=== PATIENT | female | born 1960 | race Caucasian/White ===

== ENCOUNTER → 2017-04-20 | Outpatient (CLI) | payer BC ==
--- NOTE | 2017-04-20 17:46 | CT ---
EXAMINATION TYPE: CT abdomen pelvis w con DATE OF EXAM: 04/20/2017 COMPARISON: NONE INDICATION: Diarrhea and left side abdominal pain x2 months. DLP: 943 mGycm, Automated exposure control for dose reduction was used. CONTRAST: 100 mL of Omnipaque 300. Study performed with Oral Contrast TECHNIQUE: Axial images were obtained from above the diaphragm to the pubic rami in the axial plane a t 5 mm thick sections. Reconstructed images are reviewed on the computer in the coronal plane. FINDINGS: Limited CT sections are obtained the lung bases. The lung bases are clear. CT ABDOMEN: Liver: There is a 1.1 cm cyst in the superior right lobe liver. Spleen: Normal Pancreas: Normal Adrenal glands: The adrenal glands are normal. Gallbladder: Normal Kidneys: No masses are evident. No hydronephrosis is present. No cysts are present. Delayed images were obtained through the kidneys, which remain unremarkable. Aorta: Vascular calcification is within the aorta. Inferior vena cava: Normal. CT PELVIS: There is thickening through the ascending colon. Correlate for colitis. Small bowel loops appear unremarkable. Distal colon is nondistended and lacks oral contrast. There ar e some proximal small bowel loops lacking oral contrast limiting their evaluation. Appendix: The appendix is not identified. Inflammatory changes to suggest acute appendicitis however not identified. Urinary bladder: Normal. Genitourinary structures: Uterus appears normal. Adnexal regions are clear. Osseous structures: No suspicious lytic or sclerotic lesions. IMPRESSIONS: 1. Clinical correlation recommended for colitis of the ascending colon region. 2. Nonvisualization of the appendix.
== END ==
LOC: RADCTMAIN 15:09
PROVIDERS: ATTEND Internal Medicine
DX: K57.32 Diverticulitis of large intestine without perforation or abscess without bleeding (principal)
CPT/HCPCS: 74177; Q9967

== ENCOUNTER → 2018-02-05 | Outpatient (CLI) | payer BC ==
[2018-02-05 12:55] VITALS: BP 162/72; PULSE 63; RESP 18; TEMP 96.4; BMI 23.1
--- NOTE | 2018-02-05 13:51 | P.HPOB ---
History of Present Illness H&P Date: 02/05/18 Chief Complaint: Patient is here for her routine gynecologic exam. This is a 57-year-old G2 PII within LMP of 2014. The patient has a history of a rectocele. She thinks that it is bulging more than in the past and comes to the vaginal opening or just outside of the opening. She has also been experiencing constipation. She has been having hot flashes and was recently started on Prozac for this. She is thinking about weaning off of the Prozac. Yesterday, she noticed a small pink spot of blood from the vagina. She denies any vaginal bleeding other than this since her LMP in 2014. Review of Systems She has lost about 12 pounds over the last 3 to 4 years. She attributes this to IBS. She denies respiratory, cardiac, or G.I. problems. Past Medical History Additional Past Medical History / Comment(s): hx hemorrhoids- some bleeding noted lately after B.M ? IBS. Past KENNEL ATTENDANT history: she has no history of STDs. She does have a Known rectocele. History of Any Multi-Drug Resistant Organisms: None Reported Additional Past Surgical History / Comment(s): rt breast bx x 2 Past Anesthesia/Blood Transfusion Reactions: No Reported Reaction Past Psychological History: No Psychological Hx Reported Smoking Status: Former smoker Past Alcohol Use History: Occasional (2 per week) Past Drug Use History: None Reported - Past Family History Father Family Medical History: Coronary Artery Disease (CAD) Additional Family Medical History / Comment(s): alzheimers. at age 61 Mother Family Medical History: Cancer Additional Family Medical History / Comment(s): Breast Ca. at age 41 Medications and Allergies Home Medications Medication Instructions Recorded Confirmed Type FLUoxetine HCL [PROzac] 20 mg PO DAILY 02/05/18 02/05/18 History Linaclotide [Linzess] 72 mcg PO DAILY 02/05/18 02/05/18 History Allergies Allergy/AdvReac Type Severity Reaction Status Date / Time No Known Allergies Allergy Verified 02/05/18 12:57 Exam - Vital Signs Vital signs: Vital Signs Temp Pulse Resp BP 02/05/18 12:49 96.4 F L 63 18 162/72 Intake and Output 02/04/18 02/05/18 02/05/18 22:59 06:59 14:59 Other: Weight 67.132 kg Repeat blood pressure 150/80, height 5'7", BMI 23.2. This is a well-developed well-nourished white female who is alert and oriented times 3 in no acute distress. HEENT: Within normal limits. NECK: Supple without mass or thyromegaly. CHEST AND LUNGS: Clear to auscultation. HEART: Regular rate and rhythm. BREASTS: Are without mass or discharge. AXILLARY EXAM: Negative for adenopathy. BACK: Negative for CVA tenderness. ABDOMEN: Soft, nontender, without palpable masses. PELVIC EXAM: Normal external genitalia with mild atrophy. Cervix appears normal with mild atrophy and no evidence of blood. There is a grade 2 to 3 rectocele that protrudes to the introitus with Valsalva. The vaginal mucosa shows no signs of excoriation or thickening. There is no unusual discharge. There is no evidence of cystocele or uterine prolapse. The uterus is midposition, nongravid size and nontender. There are no palpable adnexal masses or tenderness. RECTAL EXAM: rectovaginal exam is negative for mass or tenderness and is negative for occult blood. EXTREMITIES: Nontender. IMPRESSION: 1. 57 year old with grade 2 to 3 rectocele which has become slightly more symptomatic. This is possibly related to her worsening constipation. 2. Small postmenopausal bleeding yesterday. This may or may not have been uterine. This could be related to the rectocele if the mucosal tissue overlying the rectocele bled. 3. Elevated blood pressure. 4. Family history of breast cancer in her mother. PLAN: 1. Pap smear was performed. 2. Self breast examination was discussed. 3. Screening mammogram is due and an order slip was given the patient for this. She states she has an appointment in the near future for this. 4. Pelvic ultrasound was recommended and in order slip is given the patient for this. This will be done to further evaluate the small amount of postmenopausal bleeding that she experienced. 5. We had long discussion regarding her rectocele. We discussed options including conservative management and surgical correction. The patient states that the rectocele is bothersome to her and would like to proceed with surgical correction. After reviewing her pelvic ultrasound we will make a referral for a rectocele repair. 6. She will return in one year and PRN.
--- NOTE | 2018-02-12 17:02 | P.PN ---
Progress Note - Text Progress Note Date: 02/12/18 The patient's Pap smear from 02/05/2018 was negative. A shift in the vaginal ramirez was noted suggestive of bacterial vaginosis. The patient is not having any vaginal odor but has noticed a slight thin discharge. a/bacterial vaginosis p/metronidazole 500 mg 1 PO b.i.d. times 7 days. She was instructed to avoid alcohol use while taking this medication. An E prescription will be sent to [facility] in [place].
--- NOTE | 2018-02-26 14:06 | P.PN ---
Progress Note - Text Progress Note Date: 02/26/18 The patient's ultrasound from 02/21/2018 was reviewed. This was unremarkable and endometrial thickness was normal. This was discussed with the patient by phone. She had a small amount of vaginal bleeding 3 days ago. She continues to have asymptomatic rectocele. She will be referred for possible surgical correction of the rectocele and to determine if any further testing is necessary for the small postmenopausal bleeding. She will be referred to Dr. Ramirez.
== END | disposition home or self-care (01) ==
LOC: WWCWWP 12:38
PROVIDERS: ATTEND Obstetrics & Gynecology
DX: Z53.9 Procedure and treatment not carried out, unspecified reason (principal)

== ENCOUNTER → 2018-04-15 | Outpatient (CLI) | payer BC ==
[2018-04-15 15:27] LABS: Basophils # (A) 0.1 k/uL (0-0.2); Basophils % (A) 1 %; Eosinophils # (A) 0.2 k/uL (0-0.7); Eosinophils % (A) 3 %; HCT 38.3 % (34.0-46.0); HGB 12.9 gm/dL (11.4-16.0); Lymphocytes # (A) 1.7 k/uL (1.0-4.8); Lymphocytes % (A) 28 %; MCH 31.5 pg (25.0-35.0); MCHC 33.7 g/dL (31.0-37.0); MCV 93.3 fL (80.0-100.0); Mean Platelet Volume 8.1; Monocytes # (A) 0.4 k/uL (0-1.0); Monocytes % (A) 6 %; Neutrophils # (A) 3.6 k/uL (1.3-7.7); Neutrophils % (A) 60 %; Platelet Count 238 k/uL (150-450); RBC 4.11 m/uL (3.80-5.40); RDW 13.2 % (11.5-15.5); WBC 6.1 k/uL (3.8-10.6)
[2018-04-15 15:40] LABS: Potassium 4.6 mmol/L (3.5-5.1)
== END | disposition home or self-care (01) ==
LOC: LABPAT 14:59
PROVIDERS: ATTEND Obstetrics & Gynecology
DX: Z01.812 Encounter for preprocedural laboratory examination (principal); N81.4 Uterovaginal prolapse, unspecified
CPT/HCPCS: 36415; 80051; 82565; 82947; 84520; 85025; 87086

== ENCOUNTER 2018-04-23 07:27 | Observation (INO) | payer BC ==
[2018-04-16 14:33] VITALS: BMI 21.6
--- NOTE | 2018-04-18 09:48 | HP ---
HISTORY AND PHYSICAL Preoperative H and P for April 23. This is a 57-year-old female who presented for evaluation for increasing perineal bulge. Dr. Bar's impression was that of an advanced rectocele. The patient is menopausal, she is not taking hormone replacement therapy. She denies postmenopausal bleeding. She is complaining of increased pressure, slow urinary stream and increasing bulge per the perineal body. She denies any other symptomatology. REVIEW OF SYSTEMS: Review of systems is therefore otherwise negative. PAST MEDICAL HISTORY: Past medial history is significant for irritable bowel syndrome, anemia, and advancing rectocele. PAST SURGICAL HISTORY: Past surgical history is significant for breast biopsies of benign nature x2. CURRENT MEDICATIONS: 1. Fluoxetine 40 mg tablets once daily. 2. Linzess 72 mcg daily. ALLERGIES: None known. FAMILY HISTORY: Family history is significant for Alzheimer disease, breast cancer, diabetes, heart disease. REPRODUCTIVE HISTORY: Significant for 2 vaginal deliveries, 9-pound 13-ounce and 9-pound 12-ounce infants. 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 She has never been a smoker. She drinks 3 cups of coffee daily, and 1 to 2 alcoholic beverages daily. She is . PHYSICAL EXAMINATION: On examination, this is a pleasant female, 5 feet, 7 inches, 141 pounds, BMI 22, blood pressure 116/72. HEENT exam reveals no thyromegaly. Trachea is in the midline. No cervical lymphadenopathy. Breasts are bilaterally symmetric to inspection with no skin dimpling, nipple discharge, axillary adenopathy, or discernible lesions or masses. Chest is clear to auscultation in all brennan anteriorly and posteriorly. Cardiac exam reveals regular rate and rhythm with no murmur, click, or rub. Peripheral circulation reveals no edema, no cyanosis. There are good peripheral pulses. Abdominal exam reveals no organosplenomegaly, active bowel sounds, no herniorrhaphy. On pelvic exam, external genitalia is reasonably well estrogenized with no unusual discharge. Cervix appears multiparous, there is no bleeding. Uterus is small, mobile, grade 2 to 3 uterine prolapse is noted with Valsalva in the lithotomy position. Adnexa are negative bilaterally. There is a grade 3 to 4 rectocele noted, no obvious cystocele. Rectal exam reveals good sphincter tone, FIT negative stool. IMPRESSION: Increasingly symptomatic uterine prolapse and rectocele, patient requesting surgical repair. PLAN: We will proceed with vaginal hysterectomy and rectocele repair for this patient. The risks, benefits, and alternatives have been reviewed. The patient understands the risks of surgery to include bleeding, perforation or damage to bowel, bladder, ureters, or indeed any blood vessels or abdominal or pelvic organs. The risks of anesthesia including aspiration, nerve damage, and even have been discussed. The ACOG pamphlet on this procedure have been given to the patient for her more thorough review. A second opinion is offered and declined. All questions have been answered. We will proceed with surgery for this patient on 04/23/2018. MMODL / IJN: [id number] /
[~2018-04-23 07:27] MED LIST: HYDROmorphone 0.5 MG/0.5 ML SYRINGE IVP PRN; LIDOCAINE 1% 20 ML VIAL (10MG/ML) FOR IV START INTRADERMA PRN; MIDAZOLAM 2 MG/2 ML VIAL IV PRN; NALBUPHINE 10 MG/ML VIAL (10ML MDV) IV PRN; NALOXONE 0.4 MG/ML 1 ML VIAL IV PRN; ceFAZolin IN SWFI 2 GM/20 ML SYRINGE IVP ONE; fentaNYL (PF) 50 MCG/ML 2 ML AMP IV PRN
[2018-04-23] MEDS ORDERED: LACTATED RINGERS 1,000 ML IV ONE ×3 (07:59→11:43)
[2018-04-23] MEDS ORDERED: ONDANSETRON 4 MG/2 ML VIAL IVP ONE (08:14)
[2018-04-23] MEDS ORDERED: DEXAMETHASONE SOD PHOSPHATE 10 MG/ML 1 ML VIAL IV ONE (08:14)
[2018-04-23] MEDS ORDERED: ONDANSETRON 4 MG/2 ML VIAL IVP PRN ×2 (08:15→10:36)
[2018-04-23] MEDS ORDERED: METOCLOPRAMIDE 5 MG/ML 2 ML VIAL IVP PRN ×2 (08:15→10:36)
[2018-04-23] MEDS ORDERED: diphenhydrAMINE 50 MG/ML 1 ML VIAL IVP PRN (08:15)
[2018-04-23] MEDS ORDERED: MORPHINE SULFATE 2 MG/ML SYRINGE IVP PRN (08:15)
[2018-04-23] MEDS ORDERED: GLYCOPYRROLATE 0.2 MG/ML 2 ML VIAL ONE (09:15)
[2018-04-23] MEDS ORDERED: ROCURONIUM BROMIDE 10 MG/ML 10 ML VIAL IV ONE (09:15)
[2018-04-23] MEDS ORDERED: diphenhydrAMINE 50 MG/ML 1 ML VIAL ONE (09:15)
[2018-04-23] MEDS ORDERED: KETOROLAC 30 MG/ML 1 ML VIAL ONE (09:15)
[2018-04-23] MEDS ORDERED: LIDOCAINE 1% INJ 10MG/ML (20 ML MDV) ONE (09:15)
[2018-04-23] MEDS ORDERED: MIDAZOLAM 2 MG/2 ML VIAL ONE (09:15)
[2018-04-23] MEDS ORDERED: PROPOFOL 10 MG/ML 20 ML VIAL IV ONE (09:15)
[2018-04-23] MEDS ORDERED: NEOSTIGMINE 1 MG/ML 10 ML VIAL ONE (09:15)
[2018-04-23] MEDS ORDERED: fentaNYL (PF) 50 MCG/ML 2 ML AMP ONE (09:15)
[2018-04-23] MEDS ORDERED: VASOPRESSIN 20 UNIT/ML 1 ML VIAL IM ONE ×2 (09:32)
[2018-04-23] MEDS ORDERED: BACITRACIN 500 UNIT/GM OINT 28.4 GM TUBE TOPICAL ONE ×2 (09:38→10:27)
[2018-04-23] MEDS ORDERED: IBUPROFEN 600 MG TAB PO PRN (10:36)
[2018-04-23] MEDS ORDERED: Acetaminophen-Codeine 300-30mg TAB PO PRN (10:36)
--- NOTE | 2018-04-23 10:36 | P.OP ---
Date of Procedure: 04/23/18 Preoperative Diagnosis: Increasingly symptomatic rectocele and uterine prolapse Postoperative Diagnosis: Same, grade 3 cystocele normal-appearing ovaries bilaterally. Procedure(s) Performed: Vaginal hysterectomy, anterior and posterior colporrhaphy. Anesthesia: GETA Surgeon: Jessica Ramirez Private Sector Executive #1: Leoncio Meza Estimated Blood Loss (ml): 150 IV fluids (ml): 900 Urine output (ml): 300 Pathology: none sent (Cervix and uterus) Condition: stable Operative Findings: Normal-appearing ovaries bilaterally Description of Procedure: Patient is brought to the operating suite after Duramorph spinal is placed. She is put in the dorsal lithotomy position. The cervix, vagina, perineum and lower abdominal regions are all prepped and draped in usual sterile fashion. There are multiple external hemorrhoids noted. Antibiotics are given. The appropriate timeout is performed to assure proper patient and procedural identification. The bladder is drained for approximately 300 mL of clear yellow urine. Weighted speculum was placed into the vagina. Cervix is grasped with a double-tooth tenaculum. Cervix is injected circumferentially with a dilute Pitressin solution. A grand ronde tribes blade scalpel is used to incise the mucosa circumferentially with a V positioning posteriorly. Posterior peritoneum is entered at 6:00, suture tied with 2-0 Vicryl. The large billed speculum is then placed into the peritoneal cavity. The right uterosacral ligament complex is identified, clamped cut and suture ligated and held laterally. The same procedure is carried out on the opposite side. Uterine vasculature is identified, clamped cut and suture ligated. Please note that 0 Vicryl is used for the hysterectomy, 2-0 Vicryl issues for A and P repairs. 2 additional pedicles are taken above the vessels. Anterior peritoneum is entered. Uterus is walked out posteriorly and the pedicles are clamped with Jocy clamps. The specimen is removed. Pedicles are tied with 0 Vicryl in a Jesus stitch, flashed, and retied for excellent hemostasis. Sponge stick is used in both ovaries are visualized, noted to be normal and therefore left in situ. The speculum is changed to the shallow billed speculum. The 2-0 Vicryl suture is brought around in a pursestring fashion to close the peritoneum. The uterosacral ligaments that were held are brought across to incorporate the opposite ligament as well as vaginal mucosa. 2 additional [id number]-zvhxs sutures are placed. Decision is made to proceed with anterior repair is there is a large cystocele noted. Anterior vaginal mucosa is held with Allis clamps. It is injected in the midline with dilute Pitressin solution. Metzenbaum scissors are used to undermine this tissue to approximately 1.5 cm inferior to the urethra. The tissue is swept with a sponge to separate the underlying fascial plane from the overlying mucosa. Laughlin catheter is placed, urine is clear. 2-0 Vicryl sutures used in an interrupted fashion to bring the fascial edges together in the midline thereby completely reducing the cystocele. The redundant skin is trimmed with Metzenbaum scissors. 2-0 Vicryl is used in a running locking fashion to close the anterior repair for excellent reapproximation. Posterior repair is then commenced. A triangular portion of tissue is removed from the perineal body with a scalpel. The posterior vaginal mucosa is injected in the midline with the same dilute Pitressin solution. Metzenbaum scissors are used to undermine the mucosa in the midline to the apex of the defect. Sponge is used to separate the overlying mucosa from the underlying fascial planes. The fascia is brought together in the midline in an interrupted fashion with 2-0 Vicryl suture by completely reducing the rectocele. The posterior repair is somewhat vascular. The redundant tissue was trimmed with Metzenbaum scissors. 2-0 Vicryl sutures used in a running locking stitch to close the mucosa with an episiotomy-like repair for final closure. The vagina is clean and dry, it is packed with one- inch iodophor gauze with basic tracing. Laughlin is noted to be draining clear urine. Total estimated blood loss 150 mL's. Fluid replacement 900 mL's. Total urine 300 mL's. Patient is brought back to recovery room in very good condition with stable vital signs including blood pressure 104/62, pulse 76. Rectal examination after procedure reveals no foreign bodies suture materials or defects.
[2018-04-23] MEDS ORDERED: HYDROmorphone 1 MG/ML 1 ML SYRINGE IVP ONE (11:27)
[2018-04-23] MEDS: LACTATED RINGERS 1,000 ML IV SCH (13:15)
[2018-04-23] MEDS: KETOROLAC 30 MG/ML 1 ML VIAL IVP PRN ×2 (16:19→22:17)
[2018-04-23] MEDS: diphenhydrAMINE 50 MG/ML 1 ML VIAL IVP PRN ×2 (16:23→22:17)
[2018-04-24] MEDS: KETOROLAC 30 MG/ML 1 ML VIAL IVP PRN (04:25)
[2018-04-24] MEDS: LACTATED RINGERS 1,000 ML IV SCH (04:28)
--- NOTE | 2018-04-24 07:58 | P.DS ---
Providers Date of admission: 04/24/18 00:59 Expected date of discharge: 04/24/18 Attending physician: Jessica Ramirez Primary care physician: [facility] Hospital Course: This is a 57-year-old white female who presented to the office with increasingly symptomatic rectocele and uterine prolapse. After thorough consultation, she elected to proceed with surgical repair. Pessary option was offered and declined. Please see my dictated history and physical for details. Patient was admitted yesterday under my care and underwent a vaginal hysterectomy and rectocele repair. At the time of surgery a cystocele was noted as well, and this was repaired as we discussed preoperatively. Ovaries appeared normal and therefore were left in situ per the patient's wishes. Please see my dictated operative note for details. This morning the patient is doing well. Vaginal packing and Laughlin catheter have both been removed. She is ambulating, passing flatus, and tolerating regular diet. We are awaiting spontaneous void. Patient's extremities are negative, chest is clear, abdomen is soft, no CVA tenderness. Vital signs have remained stable. Pending successful post void residual measurement, patient will be discharged home later today. I have reminded her no intercourse, tampons or douching. She will use [id number]-miv-inwiyll Advil or Aleve as needed for pain, or ibuprofen pills, 200 mg, 3 every 6 hours as needed. She will call me with any fevers shakes or chills, foul smelling or bloody vaginal drainage, with any pain not alleviated by veqf-das-qopxdiu products, or indeed with any concerns. I have asked her to call me with any questions difficulties or concerns. Pathology report is pending at this time. Patient Condition at Discharge: Good Plan - Discharge Summary Discharge Rx Participant: Yes New Discharge Prescriptions: No Action FLUoxetine HCL 40 mg PO QAM Discharge Medication List FLUoxetine HCL 40 mg PO QAM 04/16/18 [History] Follow up Appointment(s)/Referral(s): Jessica Ramirez MD [STAFF PHYSICIAN] - 2 Weeks Discharge Disposition: HOME SELF-CARE
[2018-04-24 09:38] VITALS: BP 109/71; PULSE 62; RESP 24; TEMP 98
--- NOTE | 2018-04-24 10:06 | P.PN ---
Progress Note - Text Anesthesia POD 1. Patient is status post Vaginal hysterectomy, anterior and posterior colporrhaphy under spinal anesthesia with intra-thecal preservative free morphine and 100 g. Mild pruritus, good post-op analgesia, and no headache or other complication.
== END 2018-04-24 12:25 | disposition home or self-care (01) ==
LOC: OR 07:27 → 6PED 10:27 → OR 04-24 00:58 → 6PED 04-24 00:59
PROVIDERS: ADMIT Obstetrics & Gynecology; ATTEND Obstetrics & Gynecology
DX: N81.4 Uterovaginal prolapse, unspecified (principal); Z78.0 Asymptomatic menopausal state; K64.4 Residual hemorrhoidal skin tags; K58.9 Irritable bowel syndrome, unspecified; D64.9 Anemia, unspecified; Z79.899 Other long term (current) drug therapy; Z83.3 Family history of diabetes mellitus; Z82.0 Family history of epilepsy and other diseases of the nervous system; Z80.3 Family history of malignant neoplasm of breast; Z82.49 Family history of ischemic heart disease and other diseases of the circulatory system
CPT/HCPCS: 86900; 86901; 88305; 86850; 58270; 57240; G0378; J2250; J1200; J1100; J2710; J2405; J2001; J3010; J1885 ×2; J1170; J2704; J0690

== ENCOUNTER → 2020-05-21 | Outpatient (CLI) | payer BC ==
--- NOTE | 2020-05-24 10:08 | MM ---
Reason for exam: screening (asymptomatic). Last mammogram was performed 2 years and 3 months ago. History: Patient is postmenopausal. Family history of breast cancer in mother at age 41, premenopausal breast cancer in 2 aunts, and breast cancer in aunt. Benign excisional biopsy of the right breast, 2004. Excisional biopsy of the right breast, 2002. Physical Findings: A clinical breast exam by your physician is recommended on an annual basis and results should be correlated with mammographic findings. MG 3D Screening Mammo W/Cad Bilateral CC and MLO view(s) were taken. Prior study comparison: February 21, 2018, bilateral MG 3d screening mammo w/cad. October 05, 2016, bilateral MG 3d screening mammo w/cad. There are scattered fibroglandular densities. No significant changes when compared with prior studies. ASSESSMENT: Benign, BI-RAD 2 RECOMMENDATION: Routine screening mammogram of both breasts in 1 year.
== END | disposition home or self-care (01) ==
LOC: RADMAMWWP 09:37
PROVIDERS: ATTEND Internal Medicine
DX: Z12.31 Encounter for screening mammogram for malignant neoplasm of breast (principal)
CPT/HCPCS: 77063; 77067

== ENCOUNTER → 2022-02-06 | Outpatient (CLI) | payer BC ==
--- NOTE | 2022-02-06 10:20 | CT ---
EXAMINATION TYPE: CT abdomen pelvis w con DATE OF EXAM: 02/06/2022 HISTORY: History of IBS with left-sided pain CT DLP: 527.5mGycm Automated Exposure Control for Dose Reduction was Utilized. CONTRAST: CT scan of the abdomen and pelvis is performed with oral and with IV Contrast, patient injected with 100 mL of Isovue 300. COMPARISON: Prior CT April 20, 2017 FINDINGS: LUNG BASES: No significant abnormality is appreciated. LIVER/GB: Stable approximately 1.5 cm benign-appearing thin-walled cyst left hepatic lobe axial image 9 and occasional subcentimeter hypodense lesions too small to further characterize presumed benign. PANCREAS: No significant abnormality is seen. SPLEEN: No significant abnormality is seen. ADRENALS: No significant abnormality is seen. KIDNEYS: No significant abnormality is seen. BOWEL: Oral contrast extends to mid transverse colon level making evaluation of distal bowel slightly suboptimal. No suspicious small or large bowel dilatation is seen. Mild wall thickening in the trans verse colon extends into the left colon. There are diverticula in the sigmoid colon with mild wall th ickening. No significant surrounding fat stranding UTERUS/ADNEXA: Ureters not well identified on current study, suspected slightly retroflexed sagittal image 55. Abnormal heterogeneous hyperdense left pelvic structure immediately adjacent to this measur es 4.8 x 3.8 cm not clearly seen on prior study. There are prominent draining left ovarian veins. Tra ce free fluid right pelvis image 63. Poor visualization of normal or abnormal right ovary on current study likely normal marrow axial image 61 along posterior right aspect of the bladder. LYMPH NODES: No greater than 1cm abdominal or pelvic lymph nodes are appreciated. OSSEOUS STRUCTURES: Vacuum disc phenomenon with mild disc space narrowing L4-L5 level. Wxht-ao-nswuvm te axial joint space loss both hips. OTHER: No significant additional abnormality is seen. IMPRESSION: 1. New heterogeneous hyperdense left pelvic lesion possible ovarian mass with prominent draining vess els raising concern for pelvic congestion syndrome. 5 clinical correlation and follow-up pelvic ultra sound to better evaluate and characterize. 2. There is mild wall thickening in colon from the mid transverse colon through the sigmoid rectal co chelita. Possible mild uncomplicated distal colitis versus product of poor distention. Sigmoid colonic di verticulosis is also seen.
== END | disposition home or self-care (01) ==
LOC: RADCTMAIN 07:27
PROVIDERS: ATTEND Internal Medicine Gastroenterology
DX: Z87.19 Personal history of other diseases of the digestive system (principal)
CPT/HCPCS: 74177; Q9967 ×2

== ENCOUNTER → 2022-03-07 | Outpatient (CLI) | payer BC ==
--- NOTE | 2022-03-08 10:36 | MM ---
Reason for exam: screening (asymptomatic). Last mammogram was performed 1 year and 10 months ago. History: Patient is postmenopausal. Family history of breast cancer in mother at age 41, premenopausal breast cancer in 2 aunts, and breast cancer in aunt. Benign excisional biopsy of the right breast, 2004. Excisional biopsy of the right breast, 2002. Physical Findings: A clinical breast exam by your physician is recommended on an annual basis and results should be correlated with mammographic findings. MG 3D Screening Mammo W/Cad Bilateral CC and MLO view(s) were taken. Prior study comparison: May 21, 2020, bilateral MG 3d screening mammo w/cad. February 21, 2018, bilateral MG 3d screening mammo w/cad. The breast tissue is heterogeneously dense. This may lower the sensitivity of mammography. Stable benign calcifications. New right retroareolar nodularity. ASSESSMENT: Incomplete: need additional imaging evaluation, BI-RAD 0 RECOMMENDATION: Special view mammogram and ultrasound of the right breast. [facility] will attempt to contact patient to return for supplemental views and ultrasound.
== END | disposition home or self-care (01) ==
LOC: RADMAMWWP 09:07
PROVIDERS: ATTEND Family Medicine
DX: Z12.31 Encounter for screening mammogram for malignant neoplasm of breast (principal)
CPT/HCPCS: 77063; 77067

== ENCOUNTER → 2022-03-10 | Outpatient (CLI) | payer BC ==
--- NOTE | 2022-03-10 14:12 | MM ---
Reason for exam: additional evaluation requested from abnormal screening. Last mammogram was performed less than 1 month ago. History: Patient is postmenopausal. Family history of breast cancer in mother at age 41, premenopausal breast cancer in 2 aunts, and breast cancer in aunt. Benign excisional biopsy of the right breast, 2004. Excisional biopsy of the right breast, 2002. Physical Findings: A clinical breast exam by your physician is recommended on an annual basis and results should be correlated with mammographic findings. MG 3D Work Up W/Cad RT Spot compression CC, spot compression MLO, and LM view(s) were taken of the right breast. Prior study comparison: March 07, 2022, bilateral MG 3d screening mammo w/cad. May 21, 2020, bilateral MG 3d screening mammo w/cad. There are scattered fibroglandular densities. Retroareolar nodule persists. Ultrasound recommended. Results were given to the patient verbally at the time of the exam. ASSESSMENT: Incomplete: need additional imaging evaluation, BI-RAD 0 RECOMMENDATION: Ultrasound of the right breast.
--- NOTE | 2022-03-10 14:14 | USB ---
Reason for exam: additional evaluation requested from abnormal screening. History: Patient is postmenopausal. Family history of breast cancer in mother at age 41, premenopausal breast cancer in 2 aunts, and breast cancer in aunt. Benign excisional biopsy of the right breast, 2004. Excisional biopsy of the right breast, 2002. Physical Findings: A clinical breast exam by your physician is recommended on an annual basis and results should be correlated with mammographic findings. US Breast Workup Limited RT Right limited breast ultrasound including focal area of concern, retroareolar and axilla demonstrates a 0.6 0.5 x 0.4cm and 0.4 x 0.2 x 0.5cm oval, cystic lesion at the retroareola. Results were given to the patient verbally at the time of the exam. ASSESSMENT: Probably benign, BI-RAD 3 RECOMMENDATION: Follow-up diagnostic mammogram and ultrasound of the right breast in 6 months.
== END | disposition home or self-care (01) ==
LOC: RADMAMWWP 13:23
PROVIDERS: ATTEND Family Medicine
DX: R92.8 Other abnormal and inconclusive findings on diagnostic imaging of breast (principal)
CPT/HCPCS: 77061; 77065

== ENCOUNTER → 2022-06-14 | Outpatient (CLI) | payer BC ==
--- NOTE | 2022-06-14 11:50 | CT ---
EXAMINATION TYPE: CT angio chest CT DLP: 192.80 mGycm, Automated exposure control for dose reduction was used. DATE OF EXAM: 06/14/2022 11:41 AM COMPARISON: CT abdomen pelvis 02/06/2022. CLINICAL INDICATION:Female, 61 years old with history of R06.00 Dyspnea; Dyspnea since sx 05/19 Stat h old and call TECHNIQUE/CONTRAST: CTA scan of the thorax is performed with IV Contrast, patient injected with 100 mL of Isovue 370, pul monary embolism protocol. MIP images are created and reviewed. Coronal and sagittal reformats revie wed. FINDINGS: Pulmonary Artery: There is no evidence for a filling defect within the pulmonary vasculature to sugge st acute pulmonary embolism. The pulmonary artery is of normal size. Lungs/Pleura: No evidence of focal consolidation, pleural effusion or pneumothorax. Biapical pleural parenchymal scarring. Minimal bibasilar subsegmental atelectasis. No concerning pulmonary nodules or masses. Airway: Large airways are patent. Heart: Heart is within normal limits for size. No pericardial effusion. Vasculature: No evidence of aortic aneurysm. Mediastinum: No gross evidence of adenopathy. Musculoskeletal: No acute osseous abnormalities Soft Tissues: Unremarkable. Lower neck: No significant findings. Upper Abdomen: Stable left hepatic cyst. IMPRESSION: No evidence of pulmonary embolism or acute thoracic process.
== END | disposition home or self-care (01) ==
LOC: RADCTMAIN 10:50
PROVIDERS: ATTEND Family Medicine
DX: R06.00 Dyspnea, unspecified (principal)
CPT/HCPCS: 71275; Q9967

== ENCOUNTER → 2022-09-12 | Outpatient (CLI) | payer BC ==
--- NOTE | 2022-09-12 09:00 | MM ---
Reason for Exam: Follow-up at short interval from prior study. Last screening mammogram was performed 6 month(s) ago. Patient History: Menarche at age 13. First Full-Term at age 21. Left ovary removed at age 61. Right ovary removed at age 61. Hysterectomy at age 58. Postmenopausal. Ovarian cancer. 2002, Excisional Biopsy on the Right side. 2004, Benign Excisional Biopsy on the right side. Maternal aunt had breast cancer. Maternal aunt had breast cancer. Maternal aunt had breast cancer. Mother had breast cancer, age 41. Risk Values: Keya 5 year model risk: 4.2%. NCI Lifetime model risk: 16.1%. Prior Study Comparison: 05/21/2020 Bilateral Screening Mammogram, [facility]. 03/07/2022 Bilateral Screening Mammogram, [facility]. 03/10/2022 Right Diagnostic Mammogram, [facility]. Tissue Density: Right: There are scattered fibroglandular densities. Findings: Analyzed By CAD. Some distortion from prior biopsy may be present within the upper outer right mid breast. The previous subareolar density is not visualized on the craniocaudal view and is smaller on the mediolateral oblique view. No suspicious spiculated or lobular masses, cluster microcalcifications, architectural distortion or other secondary signs radiographically apparent. Overall Assessment: Benign, BI-RAD 2 Management: Screening Mammogram of both breasts in 6 months. A clinical breast exam by your physician is recommended on an annual basis and results should be correlated with mammographic findings. This exam should not preclude additional follow-up of suspicious palpable abnormalities. Results were given to the patient verbally at the time of exam. Electronically signed and approved by: Edwin Ponce D.O. Radiologis
--- NOTE | 2022-09-12 09:02 | USB ---
Reason for Exam: Follow-up at short interval from prior study. Patient History: Menarche at age 13. First Full-Term at age 21. Left ovary removed at age 61. Right ovary removed at age 61. Hysterectomy at age 58. Postmenopausal. Ovarian cancer. 2002, Excisional Biopsy on the Right side. 2004, Benign Excisional Biopsy on the right side. Maternal aunt had breast cancer. Maternal aunt had breast cancer. Maternal aunt had breast cancer. Mother had breast cancer, age 41. Risk Values: Keya 5 year model risk: 4.2%. NCI Lifetime model risk: 16.1%. Technique: Method: Targeted. Prior Study Comparison: 05/21/2020 Bilateral Screening Mammogram, [facility]. 03/07/2022 Bilateral Screening Mammogram, [facility]. 03/10/2022 Right Diagnostic Mammogram, [facility]. Findings: The periareolar of the right breast and the retroareolar of the right breast were scanned. There is a 0.4 x 0.3 x 0.4 cm retroareolar hypoechoic area. This area is smaller than the comparison. Previous cystlike area is not identified on the current exam. There is a prominent duct in the posterior right nipple region. Overall Assessment: Benign, BI-RAD 2 Management: Screening Mammogram of both breasts in 6 months. A clinical breast exam by your physician is recommended on an annual basis and results should be correlated with mammographic findings. This exam should not preclude additional follow-up of suspicious palpable abnormalities. ??Results were given to the patient verbally at the time of exam. Electronically signed and approved by: Edwin Ponce D.O. Radiologis
== END | disposition home or self-care (01) ==
LOC: RADMAMWWP 08:07
PROVIDERS: ATTEND Surgery
DX: R92.8 Other abnormal and inconclusive findings on diagnostic imaging of breast (principal); Z78.0 Asymptomatic menopausal state; Z80.3 Family history of malignant neoplasm of breast; Z98.890 Other specified postprocedural states
CPT/HCPCS: 77061; 77065

== ENCOUNTER → 2022-10-13 | Outpatient (CLI) | payer BC ==
[2022-10-13 14:12] VITALS: BP 169/93; PULSE 74; RESP 16; TEMP 97.6
--- NOTE | 2022-10-13 14:34 | P.GSHP ---
History of Present Illness H&P Date: 10/13/22 Chief Complaint: abnormal right breast mammogram Kriss is a 62 year old white female seen in consultation for DR. Petersen regarding a mammographic abnormality in her right breast. She underwent a bilateral screening mammogram on 5321 which revealed concerns in the right breast. This led to a right breast diagnostic mammogram and ultrasound at that time. Right breast ultrasound revealed a 0.6 x 0.4 cm cystic lesion at the retroareolar region. No other lesions of concern were identified and a follow- up mammogram and ultrasound of the right breast in 6 months were recommended. This was most recently performed on . These were felt to be benign BIRADS 2 and bilateral mammogram in 6 months to be on schedule was recommended. The patient does not feel any lumps masses or nodules for which she is concerned in either breast. She is not complaining of any recent trauma or infection in the breast. She is not complaining of any pain in her breast at this time. She had a right breast open biopsy twice, this was done about 7 years ago. The tissue was benign. The patient had bilateral oophrectomy for ovarian cancer earlier this year in April. She had exploratory surgery in May an ommentectomy was done. She did not have chemotherapy or radiation. The patient had genetic testing done. 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 The other 95 genes were negative. This was a multi-cancer 96 gene panel. Keya risk 5 years 4.2%, NCI lifetime risk 16.1% Caffiene: 2 cups/day nicotine: none chocolate: rare BCP: 10 years stopped in 1987 Family History: mother: of breast cancer at 41 maternal aunts (4) had breast cancer, tow of them also had ovarian cancer maternal aunt: bone cancer patient had ovarian cancer 2021 treated with surgery April 2022 paternal aunt: skin cancer paternal cousin: lung cancer smoker Hormonal History: menarche: 13 , breast fed: no, age at first : 21 menopause: 54 hormones: none Surgical History: rectocoels hysterectomy age 58 bilateral oophrectomy breast biopsy twice right foot surgery hernia repair Medical History: none Social History: nicotine: stopped 30 years ago, smoked for 10 years 1/2 PPD alcohol: occasional drugs: none - Constitutional Constitutional: Reports sweats - EENT Eyes: denies blurred vision, denies pain Ears: deny: decreased hearing, tinnitus Ears, nose, mouth and throat: Denies headache, Denies sore throat - Breasts Breasts: bilateral: as per HPI - Cardiovascular Comment: patient had COVID in the past Cardiovascular: Reports shortness of breath, Denies chest pain - Respiratory Respiratory: Denies cough, Denies 7 - Gastrointestinal Comment: IBS Gastrointestinal: Reports constipation, Reports diarrhea, Denies abdominal pain, Denies nausea, Denies vomiting - Genitourinary (Female) Genitourinary: Denies dysuria, Denies hematuria - Menstruation Menstruation: Reports post hysterectomy - Musculoskeletal Musculoskeletal: Denies myalgias - Integumentary Integumentary: Denies pruritus, Denies rash - Neurological Neurological: Denies numbness, Denies weakness - Psychiatric Psychiatric: Reports anxiety - Endocrine Endocrine: Denies fatigue, Denies weight change - Hematologic/Lymphatic Comment: none - Allergic/Immunologic Allergic/Immunologic: Reports as per HPI Past Medical History Additional Past Medical History / Comment(s): hx hemorrhoids- some bleeding noted lately after B.M ? IBS. Past CREATIVE DIRECTOR history: she has no history of STDs. She does have a Known rectocele. History of Any Multi-Drug Resistant Organisms: None Reported Past Surgical History: Breast Surgery, Hernia Repair, Tonsillectomy Additional Past Surgical History / Comment(s): rt breast bx x 2 Past Anesthesia/Blood Transfusion Reactions: No Reported Reaction Past Psychological History: No Psychological Hx Reported Smoking Status: Former smoker Past Alcohol Use History: Occasional Additional Past Alcohol Use History / Comment(s): quit smoking > 20 yrs ago, smoked for 10 yrs, 1 PPD Past Drug Use History: None Reported - Past Family History Father Family Medical History: Coronary Artery Disease (CAD) Additional Family Medical History / Comment(s): alzheimers. at age 61 Mother Family Medical History: Cancer Additional Family Medical History / Comment(s): Breast Ca. at age 41 Medications and Allergies Home Medications Medication Instructions Recorded Confirmed Type Amitriptyline HCl 10 mg PO DAILY 10/13/22 10/13/22 History Escitalopram [Lexapro] 10 mg PO DAILY 10/13/22 10/13/22 History Allergies Allergy/AdvReac Type Severity Reaction Status Date / Time No Known Allergies Allergy Verified 10/13/22 14:07 Surgical - Exam Vital Signs Temp Pulse Resp BP Pulse Ox 97.6 F 74 16 169/93 100 10/13/22 14:08 10/13/22 14:08 10/13/22 14:08 10/13/22 14:08 10/13/22 14:08 - General no distress - Eyes normal ocular movement - ENT no hearing loss - Neck trachea midline - Respiratory normal respiratory effort - Cardiovascular Rhythm: regular Heart Sounds: normal: S1, S2 - Abdomen Abdomen: soft, non tender, no guarding, no rigid, no rebound - Integumentary normal turgor - Neurologic no disoriented, no combative - Musculoskeletal normal gait, normal posture - Psychiatric oriented to time, oriented to person, oriented to place, speech is normal, me candace intact Breast Exam: BRA: 36DD Inspection: Bilateral grade 2 ptosis, well-healed scar right breast from prior biopsies Palpation: Right breast: Multiple positional exam fibrocystic changes, no discrete dominant masses or nodules of concern Right axilla: No adenopathy of concern Left breast: Multi-positional exam fibrocystic changes no dominant masses or nodules of concern Left axilla: No adenopathy of concern Results Mammogram and ultrasound personally reviewed Assessment and Plan Assessment: Impression: 62-year-old white female high risk for breast cancer related to family history/personal history of ovarian cancer 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 Petersen
== END ==
LOC: WWCWWP 13:55
PROVIDERS: ATTEND Surgery
DX: N60.11 Diffuse cystic mastopathy of right breast (principal); N60.12 Diffuse cystic mastopathy of left breast; Z85.43 Personal history of malignant neoplasm of ovary; Z80.3 Family history of malignant neoplasm of breast; Z87.891 Personal history of nicotine dependence

== ENCOUNTER → 2023-04-24 | Outpatient (CLI) | payer BC ==
--- NOTE | 2023-04-24 10:35 | MM ---
Reason for Exam: Follow-up at short interval from prior study. Last mammogram was performed 1 year(s) and 1 month(s) ago. Patient History: Menarche at age 13. First Full-Term at age 21. Left ovary removed at age 61. Right ovary removed at age 61. Hysterectomy at age 58. Postmenopausal. Ovarian cancer. 2002, Excisional Biopsy on the Right side. 2004, Benign Excisional Biopsy on the right side. Maternal aunt had breast cancer. Maternal aunt had breast cancer. Maternal aunt had breast cancer. Maternal aunt had ovarian cancer at or over age 50. Mother had breast cancer, age 41. Risk Values: Keya 5 year model risk: 4.2%. NCI Lifetime model risk: 16.1%. Tissue Density: There are scattered fibroglandular densities. Findings: Analyzed By CAD. Chronic nodularity lateral right breast. The previous subareolar nodularity on the right has resolved. No significant change from prior exams. Overall Assessment: Benign, BI-RAD 2 Management: Screening Mammogram of both breasts in 1 year. See note below in regards to patient's increased 5 year Keya score. Patient should continue monthly self-breast exams. A clinical breast exam by your physician is recommended on an annual basis. This exam should not preclude additional follow-up of suspicious palpable abnormalities. Note on Keya scores and lifetime risk: 1. A Keya score greater than 3% is considered moderate risk. If this is the case, consider specialist referral to assess eligibility for a risk reducing agent. 2. If overall lifetime risk for the development of breast cancer is 20% or higher, the patient may qualify for future screening with alternating mammogram and breast MRI. Electronically signed and approved by: Sally Chacko M.D. Radiologist
== END | disposition home or self-care (01) ==
LOC: RADMAMWWP 10:04
PROVIDERS: ATTEND Surgery
DX: N63.10 Unspecified lump in the right breast, unspecified quadrant (principal); Z78.0 Asymptomatic menopausal state; Z80.3 Family history of malignant neoplasm of breast; Z80.41 Family history of malignant neoplasm of ovary
CPT/HCPCS: 77062; 77066

== ENCOUNTER 2023-06-06 11:00 | Day surgery (SDC) | payer BC ==
[2023-06-04 10:00] VITALS: BMI 24.3
[~2023-06-06 11:00] MED LIST changes: -HYDROmorphone 0.5 MG/0.5 ML SYRINGE IVP PRN; +LACTATED RINGERS 1,000 ML IV SCH; +LIDOCAINE 1% (10MG/ML) FOR IV START INTRADERMA PRN; -LIDOCAINE 1% 20 ML VIAL (10MG/ML) FOR IV START INTRADERMA PRN; -MIDAZOLAM 2 MG/2 ML VIAL IV PRN; -NALBUPHINE 10 MG/ML VIAL (10ML MDV) IV PRN; -NALOXONE 0.4 MG/ML 1 ML VIAL IV PRN; -ceFAZolin IN SWFI 2 GM/20 ML SYRINGE IVP ONE; -fentaNYL (PF) 50 MCG/ML 2 ML AMP IV PRN
[2023-06-06 11:19] VITALS: TEMP 97.2
[2023-06-06] MEDS ORDERED: LACTATED RINGERS 1,000 ML IV ONE (11:19)
[2023-06-06] MEDS ORDERED: PROPOFOL 10 MG/ML 20 ML VIAL IV ONE (12:33)
--- NOTE | 2023-06-06 12:47 | P.PCN ---
Date of Procedure: 06/06/23 Procedure(s) Performed: BRIEF HISTORY: Patient is a 62-year-old pleasant white female scheduled for an elective colonoscopy as a part of evaluation of intermittent rectal bleeding. PROCEDURE PERFORMED: Colonoscopy. PREOPERATIVE DIAGNOSIS: Intermittent rectal bleeding. IV sedation per Anesthesia. PROCEDURE: After informed consent was obtained, the patient, was brought into the endoscopy unit. IV sedation was administered by Anesthesia under continuous monitoring. Digital rectal examination was normal. Initially the Olympus CF-160 flexible video colonoscope was then inserted in the rectum, gradually advanced into the cecum without any difficulty. Careful examination was performed as the scope was gradually being withdrawn. Ileocecal valve and the appendiceal orifice were visualized and appeared normal. Prep was excellent. Mucosa of the cecum, ascending colon, transverse colon, descending colon, sigmoid colon, and rectum appeared normal. Scattered sigmoid diverticulosis. Retroflexion was performed in the rectum and grade 2 internal hemorrhoids were seen. The patient tolerated the procedure well. IMPRESSION: Normal-appearing colon from rectum to cecum with no evidence of colorectal neoplasia. Grade 2 internal hemorrhoids Scattered sigmoid diverticulosis RECOMMENDATIONS: Findings of this examination were discussed with the patient is well as her family. She was advised to continue with fiber supplements as well as linzess as needed. Avoid straining and constipation. Repeat screening colonoscopy in 10 years.
[2023-06-06 13:10] VITALS: RESP 16
[2023-06-06 13:22] VITALS: BP 154/76; PULSE 86
== END 2023-06-06 13:40 | disposition home or self-care (01) ==
LOC: ORWHC2ENDO 11:00
PROVIDERS: ATTEND Internal Medicine Gastroenterology
DX: K62.5 Hemorrhage of anus and rectum (principal); K57.30 Diverticulosis of large intestine without perforation or abscess without bleeding; K64.1 Second degree hemorrhoids; F41.9 Anxiety disorder, unspecified; Z90.89 Acquired absence of other organs; Z79.899 Other long term (current) drug therapy
CPT/HCPCS: 45378; J2704

== ENCOUNTER → 2023-06-14 | Outpatient (CLI) | payer BC ==
--- NOTE | 2023-06-14 16:30 | P.PN ---
Subjective Progress Note Date: 06/14/23 Kriss is a 62 year old white female seen in consultation for DR. Petersen regarding a mammographic abnormality in her right breast. She underwent a bilateral screening mammogram on 5321 which revealed concerns in the right breast. This led to a right breast diagnostic mammogram and ultrasound at that time. Right breast ultrasound revealed a 0.6 x 0.4 cm cystic lesion at the retroareolar region. No other lesions of concern were identified and a follow-up mammogram and ultrasound of the right breast in 6 months were recommended. This was most recently performed on . These were felt to be benign BIRADS 2 and bilateral mammogram in 6 months to be on schedule was recommended. The patient does not feel any lumps masses or nodules for which she is concerned in either breast. She is not complaining of any recent trauma or infection in the breast. She is not complaining of any pain in her breast at this time. She had a right breast open biopsy twice, this was done about 7 years ago. The tissue was benign. The patient had bilateral oophrectomy for ovarian cancer, April 2022. She had exploratory surgery in May an ommentectomy was done. She did not have chemotherapy or radiation. The patient had genetic testing done. 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 The other 95 genes were negative. This was a multi-cancer 96 gene panel. She is following at [facility] in [place], and had a recent computed tomography scan and blood work with no evidence of any recurrence related to the ovarian cancer. She did not have any chemotherapy or radiation therapy. Keya risk 5 years 4.2%, NCI lifetime risk 16.1%; we have again talked about possible chemoprophylaxis. The patient has had bilateral oophrectomy making her postmenopausal already but there may be some role for an aromatase inhibitor. Caffiene: 2 cups/day nicotine: none chocolate: rare BCP: 10 years stopped in 1987 Family History: mother: of breast cancer at 41 maternal aunts (4) had breast cancer, tow of them also had ovarian cancer maternal aunt: bone cancer patient had ovarian cancer 2021 treated with surgery April 2022 paternal aunt: skin cancer paternal cousin: lung cancer smoker Hormonal History: menarche: 13 , breast fed: no, age at first : 21 menopause: 54 hormones: none Surgical History: rectocoels hysterectomy age 58 bilateral oophrectomy breast biopsy twice right foot surgery hernia repair Medical History: none Social History: nicotine: stopped 30 years ago, smoked for 10 years 1/2 PPD alcohol: occasional drugs: none - Constitutional Constitutional: Reports sweats - EENT Eyes: denies blurred vision, denies pain Ears: deny: decreased hearing, tinnitus Ears, nose, mouth and throat: Denies headache, Denies sore throat - Breasts Breasts: bilateral: as per HPI - Cardiovascular Comment: patient had COVID in the past Cardiovascular: Reports shortness of breath, Denies chest pain - Respiratory Respiratory: Denies cough, Denies 7 - Gastrointestinal Comment: IBS Gastrointestinal: Reports constipation, Reports diarrhea, Denies abdominal pain, Denies nausea, Denies vomiting - Genitourinary (Female) Genitourinary: Denies dysuria, Denies hematuria - Menstruation Menstruation: Reports post hysterectomy - Musculoskeletal Musculoskeletal: Denies myalgias - Integumentary Integumentary: Denies pruritus, Denies rash - Neurological Neurological: Denies numbness, Denies weakness - Psychiatric Psychiatric: Reports anxiety - Endocrine Endocrine: Denies fatigue, Denies weight change - Hematologic/Lymphatic Comment: none - Allergic/Immunologic Allergic/Immunologic: Reports as per HPI Past Medical History Additional Past Medical History / Comment(s): hx hemorrhoids- some bleeding noted lately after B.M ? IBS. 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 She does have a Known rectocele. History of Any Multi-Drug Resistant Organisms: None Reported Past Surgical History: Breast Surgery, Hernia Repair, Tonsillectomy Additional Past Surgical History / Comment(s): rt breast bx x 2 Past Anesthesia/Blood Transfusion Reactions: No Reported Reaction Past Psychological History: No Psychological Hx Reported Smoking Status: Former smoker Past Alcohol Use History: Occasional Additional Past Alcohol Use History / Comment(s): quit smoking > 20 yrs ago, smoked for 10 yrs, 1 PPD Past Drug Use History: None Reported - Past Family History Father Family Medical History: Coronary Artery Disease (CAD) Additional Family Medical History / Comment(s): alzheimers. at age 61 Mother Family Medical History: Cancer Additional Family Medical History / Comment(s): Breast Ca. at age 41 Medications and Allergies Home Medications Medication Instructions Recorded Confirmed Type Amitriptyline HCl 10 mg PO DAILY 10/13/22 10/13/22 History Escitalopram [Lexapro] 10 mg PO DAILY 10/13/22 10/13/22 History Allergies Allergy/AdvReac Type Severity Reaction Status Date / Time No Known Allergies Allergy Verified 10/13/22 14:07 Objective - Vital Signs Vital signs: Intake & Output 06/13/23 06/14/23 06/14/23 18:59 06:59 18:59 Weight 70.307 kg - Constitutional General appearance: Present: cooperative - EENT Eyes: Present: EOMI ENT: Present: hearing grossly normal - Neck Neck: Present: normal ROM - Respiratory Respiratory: bilateral: CTA - Cardiovascular Rhythm: regular Heart sounds: normal: S1, S2 - Integumentary Integumentary: Present: normal turgor - Musculoskeletal Musculoskeletal: Present: gait normal - Psychiatric Psychiatric: Present: A&O x's 3, appropriate affect, intact judgment & insight - Additional findings Additional findings: Breast Exam: BRA: 36DD Inspection: Bilateral grade 2 ptosis, well-healed scar right breast from prior biopsies Palpation: Right breast: Multiple positional exam fibrocystic changes, no discrete dominant masses or nodules of concern Right axilla: No adenopathy of concern Left breast: Multi-positional exam fibrocystic changes no dominant masses or nodules of concern Left axilla: No adenopathy of concern Assessment and Plan Assessment: Impression: 62-year-old white female high risk for breast cancer related to family history/personal history of ovarian cancer 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 Petersen
[2023-06-14 16:31] VITALS: BP 158/82; PULSE 60; RESP 16; TEMP 98.3
== END ==
LOC: WWCWWP 15:43
PROVIDERS: ATTEND Surgery
DX: C56.9 Malignant neoplasm of unspecified ovary (principal); N60.11 Diffuse cystic mastopathy of right breast; N60.01 Solitary cyst of right breast; Z80.3 Family history of malignant neoplasm of breast; Z87.891 Personal history of nicotine dependence

== ENCOUNTER → 2023-10-03 | Outpatient (CLI) | payer BC ==
--- NOTE | 2023-10-03 17:33 | CA ---
Transthoracic Echo Report Name: Kriss Gifford Age: 63 Gender: F : 1960 Exam Date: 10/03/2023 13:34 Exam Location: [facility] Ht (in): 67 Wt (lb): 155 Ordering Physician: Vincenzo Nunez MD Attending/Referring Phys: Jimena Parmar PAC Cloth Napping Supervisor Giselle Ogedn [facility] Procedure CPT: Indications: R00.0 TACHYCARDIA, UNSPECIFIED Cardiac Hx: Technical Quality: Technically difficult study Contrast 1: Total Dose (mL): Contrast 2: Total Dose (mL): MEASUREMENTS (Male / Female) Normal Values 2D ECHO LV Diastolic Diameter PLAX 4.5 cm 4.2 - 5.9 / 3.9 - 5.3 cm LV Systolic Diameter PLAX 2.9 cm IVS Diastolic Thickness 0.9 cm 0.6 - 1.0 / 0.6 - 0.9 cm LVPW Diastolic Thickness 0.9 cm 0.6 - 1.0 / 0.6 - 0.9 cm LV Relative Wall Thickness 0.4 LVOT Diameter 2.0 cm M-MODE Aortic Root Diameter MM 2.9 cm LA Systolic Diameter MM 2.7 cm LA Ao Ratio MM 0.9 AV Cusp Separation MM 1.8 cm DOPPLER AV Peak Velocity 131.0 cm/s AV Peak Gradient 6.9 mmHg AV Mean Velocity 93.6 cm/s AV Mean Gradient 3.9 mmHg AV Velocity Time Integral 29.8 cm LVOT Peak Velocity 115.2 cm/s LVOT Peak Gradient 5.3 mmHg LVOT Velocity Time Integral 25.7 cm LVOT Stroke Volume 77.7 cm??? LVOT Stroke Volume Index 42.8 ml/m??? LVOT Cardiac Index 2674.2 cm???/min???m??? AV Area Cont Eq vti 2.6 cm??? AV Area Cont Eq pk 2.7 cm??? Mitral E Point Velocity 92.8 cm/s Mitral A Point Velocity 89.4 cm/s Mitral E to A Ratio 1.0 MV Deceleration Time 204.6 ms LV E' Lateral Velocity 11.8 cm/s Mitral E to LV E' Lateral Ratio 7.9 LV E' Septal Velocity 9.7 cm/s Mitral E to LV E' Septal Ratio 9.6 TR Peak Velocity 221.6 cm/s TR Peak Gradient 19.6 mmHg Right Atrial Pressure 3.0 mmHg Pulmonary Artery Systolic Pressu 22.6 mmHg Right Ventricular Systolic Press 22.6 mmHg FINDINGS Left Ventricle Left ventricular wall thickness normal. Left ventricular cavity size normal. Normal left ventricular systolic function with no obvious regional wall motion abnormalities. Left ventricular ejection fraction is estimated at 55-60%. Right Ventricle Normal right ventricular size. Right Atrium Normal right atrial size. Left Atrium Normal left atrial size. Mitral Valve Mitral valve thickened. No mitral regurgitation. Aortic Valve Aortic valve not well visualized. No aortic valve stenosis or regurgitation. Tricuspid Valve Structurally normal tricuspid valve. Trace tricuspid regurgitation. Pulmonic Valve Pulmonic valve not well visualized. Pericardium No pericardial effusion. Aorta Normal size aortic root and proximal ascending aorta. CONCLUSIONS Normal LV function Previewed by: Dr. Kin Saldana MD (Electronically Signed) Final Date: 03 October 2023 17:33
== END | disposition home or self-care (01) ==
LOC: RADECHMAIN 13:23
PROVIDERS: ATTEND Family Medicine
DX: Z01.818 Encounter for other preprocedural examination (principal); R00.0 Tachycardia, unspecified
CPT/HCPCS: 93306

== ENCOUNTER → 2024-05-28 | Outpatient (CLI) | payer BC ==
--- NOTE | 2024-05-30 09:57 | MM ---
Reason for Exam: Screening (asymptomatic). Last mammogram was performed 1 year(s) and 1 month(s) ago. Patient History: Menarche at age 13. First Full-Term at age 21. Left ovary removed at age 61. Right ovary removed at age 61. Hysterectomy at age 58. Postmenopausal. Ovarian cancer, age 61. 2002, Excisional Biopsy on the Right side. 2004, Benign Excisional Biopsy on the right side. Maternal aunt had breast cancer. Maternal aunt had breast cancer. Maternal aunt had breast cancer. Maternal aunt had ovarian cancer at or over age 50. Mother had breast cancer, age 41. Risk Values: Keya 5 year model risk: 4.3%. NCI Lifetime model risk: 15.6%. Prior Study Comparison: 03/10/2022 Right Diagnostic Mammogram, [facility]. 09/12/2022 Right MG 3D diag mammo w/cad RT, [facility]. 04/24/2023 Bilateral MG 3D diag mammo w/cad N[facility], [facility]. Tissue Density: The breasts are heterogeneously dense, which may obscure small masses. Findings: Analyzed By CAD. There is no suspicious group of microcalcifications or new suspicious mass in either breast. Overall Assessment: Negative, BI-RAD 1 Management: Screening Mammogram of both breasts in 1 year. . Patient should continue monthly self-breast exams. A clinical breast exam by your physician is recommended on an annual basis. This exam should not preclude additional follow-up of suspicious palpable abnormalities. Note on Keya scores and lifetime risk: 1. A Keya score greater than 3% is considered moderate risk. If this is the case, consider specialist referral to assess eligibility for a risk reducing agent. 2. If overall lifetime risk for the development of breast cancer is 20% or higher, the patient may qualify for future screening with alternating mammogram and breast MRI. Electronically signed and approved by: Dom Angel M.D. Radiologis
== END | disposition home or self-care (01) ==
LOC: RADMAMWWP 12:45
PROVIDERS: ATTEND Family Medicine
DX: Z12.31 Encounter for screening mammogram for malignant neoplasm of breast (principal); Z78.0 Asymptomatic menopausal state; Z80.3 Family history of malignant neoplasm of breast; R92.333 Mammographic heterogeneous density, bilateral breasts
CPT/HCPCS: 77063; 77067